=== PATIENT | male | born 1945 | race Asian ===

== ENCOUNTER 2016-10-23 07:44 | Emergency (ER) | payer MEDICARE, MEDICAID ==
[~2016-10-23] VITALS: Ht 167.6 cm; Wt 68.0 kg
[2016-10-23 08:09] VITALS: BP 151/88
== END 2016-10-23 08:51 | disposition home or self-care (01) ==
LOC: EMS 07:47
DX: S00.83XA Contusion of other part of head, initial encounter (principal); V18.0XXA Pedal cycle driver injured in noncollision transport accident in nontraffic accident, initial encounter; Y93.89 Activity, other specified; Y92.89 Other specified places as the place of occurrence of the external cause; Y99.9 Unspecified external cause status
CPT/HCPCS: 99281; 99284